=== PATIENT | female | born 1935 | race Caucasian/White ===

== ENCOUNTER → 2017-01-02 | Outpatient (CLI) | payer OTHER ==
[2017-01-02 15:32] LABS: HEMATOCRIT 46.1 % (37.0-47.0); MEAN CELL VOLUME 109.5 fl (81.0-99.0); MEAN CORPUSCULAR HGB 35.6 pg (27.0-31.0); MEAN CORPUSCULAR HGB CONC 32.5 g/dl (33.0-37.0); MEAN PLATELET VOLUME 10.8 fl (9.6-12.3); PLATELET COUNT AUTOMATED 220 10*3/uL (130-400); RED BLOOD COUNT 4.21 10*6/uL (4.10-5.10); RED CELL DISTRI WIDTH 13.2 % (0-14.5); WHITE BLOOD COUNT 8.5 10*3/uL (4.8-10.8)
[2017-01-02 15:52] LABS: EOSINOPHIL # 0.2 10*3/uL (0-0.4); EOSINOPHILS 2 % (1-4); LYMPHOCYTE # 1.3 10*3/uL (1.3-4.4); MONOCYTE # 0.7 10*3/uL (0.1-1.0); NEUTROPHIL # 6.4 10*3/uL (2.3-7.9); NEUTROPHILS 75 % (47-73); TOTAL CELLS COUNTED 100 #CELLS
[2017-01-02 15:53] LABS: PLATELET SUFFICIENCY NORMAL (NORMAL)
[2017-01-02 16:09] LABS: ALBUMIN 3.5 gm/dl (3.1-4.5); ALKALINE PHOSPHATASE 86 U/L (45-117); BILIRUBIN, TOTAL 0.5 mg/dl (0.2-1.0); BUN 41 mg/dl (7-24); CARBON DIOXIDE 29 mmol/L (21-32); CHLORIDE 103 mmol/L (98-107); EST GLOM FILT AFRICAN AMERICAN > 60 ml/min; FREE T4 1.03 ng/dl (0.76-1.46); GLUCOSE 109 mg/dL (65-99); POTASSIUM 4.4 mmol/L (3.5-5.1); SGOT/AST 29 IU/L (3-35); SGPT/ALT 23 U/L (12-78); SODIUM 140 mmol/L (136-145); TOTAL PROTEIN 7.8 gm/dL (6.4-8.2)
[2017-01-03 05:13] LABS: THYROID PEROXIDASE (TPO) AB 10 IU/mL (0-34)
[2017-01-03 12:08] LABS: THYROGLOBULIN ANTIBODY <1.0 IU/mL (0.0-0.9)
== END | disposition home or self-care (01) ==
LOC: LAB 15:03
PROVIDERS: Family Medicine
DX: J44.9 Chronic obstructive pulmonary disease, unspecified (principal); H05.20 Unspecified exophthalmos; R63.4 Abnormal weight loss; R05 Cough; R09.89 Other specified symptoms and signs involving the circulatory and respiratory systems; Z87.891 Personal history of nicotine dependence

== ENCOUNTER → 2017-01-23 | Outpatient (CLI) | payer OTHER ==
[2017-01-23 11:40] LABS: RETICULOCYTE % 1.79 % (0.50-2.50)
[2017-01-23 11:46] LABS: IRF 12.8 % (2.4-13.3); RET-He 41.4 pg (32.1-37.9)
[2017-01-23 13:06] LABS: FOLIC ACID > 24.00 ng/mL (>5.38)
== END | disposition home or self-care (01) ==
LOC: LAB 11:20
PROVIDERS: Family Medicine
DX: D64.9 Anemia, unspecified (principal)

== ENCOUNTER 2017-06-16 11:24 | Inpatient (IN) | payer OTHER ==
[~2017-06-16] VITALS: Ht 157.4 cm; Wt 46.8 kg
[2017-06-16 11:24] VITALS: BP 140/60
[2017-06-16 11:58] LABS: BASO # 0.1 10*3/uL (0.0-0.1); BASO % 0.6 % (0.0-1.0); EOS # 0.1 10*3/uL (0.0-0.4); EOS % 1.1 % (1.0-4.0); HEMATOCRIT 36.8 % (37.0-47.0); HEMOGLOBIN 11.7 g/dl (12.0-16.0); LYMPH # 0.9 10*3/uL (1.3-4.4); LYMPH % 10.9 % (27.0-41.0); MEAN CELL VOLUME 107.6 fl (81.0-99.0); MEAN CORPUSCULAR HGB 34.2 pg (27.0-31.0); MEAN CORPUSCULAR HGB CONC 31.8 g/dl (33.0-37.0); NEUT # 6.1 10*3/uL (2.3-7.9); NEUT % 75.2 % (47.0-73.0); PLATELET COUNT AUTOMATED 172 10*3/uL (130-400); RED BLOOD COUNT 3.42 10*6/uL (4.10-5.10); RED CELL DISTRI WIDTH 14.5 % (0-14.5); WHITE BLOOD COUNT 8.1 10*3/uL (4.8-10.8)
[2017-06-16 12:07] LABS: ACT PARTIAL THROMBO TIME 24.4 SECONDS (20.8-31.5)
[2017-06-16 12:14] LABS: ALBUMIN 3.2 gm/dl (3.1-4.5); ALKALINE PHOSPHATASE 82 U/L (45-117); BUN 23 mg/dl (7-24); CHLORIDE 103 mmol/L (98-107); CKMB < 0.5 ng/ml (0.5-3.6); CPK 111 U/L (26-192); CREATININE 0.67 mg/dL (0.55-1.02); LIPASE 173 U/L (73-393); MAGNESIUM 2.3 mg/dL (1.5-2.1); POTASSIUM 3.9 mmol/L (3.5-5.1); SGOT/AST 29 IU/L (3-35); SGPT/ALT 23 U/L (12-78); SODIUM 140 mmol/L (136-145); TOTAL PROTEIN 6.9 gm/dL (6.4-8.2); TROPONIN I < 0.015 ng/ml (<0.045)
[2017-06-16 12:51] LABS: BILIRUBIN NEGATIVE (NEGATIVE); BLOOD NEGATIVE (NEGATIVE); CLARITY SL CLOUDY (CLEAR); COLOR YELLOW (YELLOW); GLUCOSE NEGATIVE (NEGATIVE); KETONE NEGATIVE (NEGATIVE); LEUKO ESTERASE NEGATIVE (NEGATIVE); NITRITE POSITIVE (NEGATIVE); UROBILINOGEN 0.2 E.U./dl (0.2-1.0)
[2017-06-16 12:55] VITALS: BP 143/72
[2017-06-16 13:02] LABS: BACTERIA 4+
[2017-06-16 13:46] VITALS: BP 148/75
[2017-06-16 14:45] VITALS: BP 155/64
--- NOTE | 2017-06-16 14:45 | NUR ---
Time: 1444 A 81 year old FEMALE admitted to 5E under services of AMI TALBERT DO. Pt. arrived via bed from ER. Chief complaint: PELVIC AND RIGHT HIP PAIN. HILARIO CANO
--- NOTE | 2017-06-16 15:00 | NUR ---
PATIENT REFUSED FLU VACCINATION
--- NOTE | 2017-06-16 16:47 | NUR ---
PHYSICAL THERAPY Multiple pelvic fractures identified. Recommend ortho consult for weight bearing status permitted. thank you for this referral. Fela Rae.PT
[2017-06-16 20:00] VITALS: BP 163/73
--- NOTE | 2017-06-16 23:23 | NUR ---
PATIENT MEDICATED WITH PRN MORPHINE ORDERED FOR C/O PELVIC PAIN RATED A 10. MEDICATED WITH PRN RESTORIL ORDERED FOR C/O INSOMNIA.
[2017-06-17] VITALS: BP 156/83
--- NOTE | 2017-06-17 00:30 | NUR ---
PATIENT RESTING IN BED QUIETLY. MORPHINE EFFECTIVE PER PATIENT. NO VOICED COMPLAINTS AT THIS TIME. RESPIRATIONS EASY/REGULAR. NO SXS OF DISTRESS. FLUIDS MAINTAINED PER ORDER. CALL LIGHT IS IN REACH.
--- NOTE | 2017-06-17 06:30 | NUR ---
PATIENT SLEPT THROUGHOUT MOST OF SHIFT WITH NO VOICED COMPLAINTS. RESPIRATIONS EASY/REGULAR. FLUIDS MAINTAINED PER ORDER. CALL LIGHT IS IN REACH.
[2017-06-17 07:15] LABS: HEMATOCRIT 36.2 % (37.0-47.0); HEMOGLOBIN 11.5 g/dl (12.0-16.0); MEAN CORPUSCULAR HGB 34.6 pg (27.0-31.0); MEAN CORPUSCULAR HGB CONC 31.8 g/dl (33.0-37.0); MEAN PLATELET VOLUME 10.5 fl (9.6-12.3); PLATELET COUNT AUTOMATED 156 10*3/uL (130-400); RED BLOOD COUNT 3.32 10*6/uL (4.10-5.10); RED CELL DISTRI WIDTH 14.6 % (0-14.5); WHITE BLOOD COUNT 5.9 10*3/uL (4.8-10.8)
[2017-06-17 07:41] LABS: BASOPHILS 1 % (0-1); TOTAL CELLS COUNTED 100 #CELLS
[2017-06-17 07:42] LABS: PLATELET SUFFICIENCY NORMAL (NORMAL)
[2017-06-17 07:52] LABS: CHLORIDE 103 mmol/L (98-107); CHOLESTEROL 235 mg/dL (<200); CREATININE 0.44 mg/dL (0.55-1.02); HDL CHOLESTEROL 77 mg/dl (40-60); LDL CHOLESTEROL 141 mg/dL (9-159); PHOSPHOROUS 2.7 mg/dL (2.5-4.9); POTASSIUM 3.2 mmol/L (3.5-5.1); SODIUM 138 mmol/L (136-145); TRIGLYCERIDES 85 mg/dl (<150); VLDL CHOLESTEROL 17 mg/dL (6-40)
[2017-06-17 08:00] VITALS: BP 125/60
[2017-06-17 08:13] LABS: BUN 13 mg/dl (7-24)
--- NOTE | 2017-06-17 08:21 | NUR ---
Senior Executive Assistant in to talk to patient. Patient states lives at home with alone. There are few steps in the home. Physician: manuel Pharmacy: tho Home health services: none Patient's level of ADLs: MINIMAL ASSIST Patient has working utilities: all working DME: none Follow-up physician's appointment after d/c: will be made by hospitalist nurse director upon discharge Does patient want to access PORTAL?: no Discharge plan discussed with patient, patient states she lives at home alone, she was getting around fine until she fell, discussed with her a short term [place] [facility] for [facility] prior to going back home and patient was inagreement, gave patient choices of area facilities and she stated to see which one would accept her insurance, resource management planner will check on facilities and talk with patient. LOUANN BENÍTEZ
--- NOTE | 2017-06-17 08:27 | NUR ---
Residential Pest Control Technician in to talk to patient. Patient states lives at home with alone. There are few steps in the home. Physician: none Pharmacy: none Home health services: none Patient's level of ADLs: INDEPENDENT Patient has working utilities: all working DME: none Follow-up physician's appointment after d/c: will be made by hospitalist nurse director upon discharge with doctor of patient's choice Does patient want to access PORTAL?: no Discharge plan discussed with patient, patient lives at home alone, she states she was getting around fine until her fall, discussed with her a short term [facility] and she was receptive to this, given her the area facilities, patient stated to check and see which one would accept her insurance. conservation planner will check this and talk with patient. LOUANN BENÍTEZ
--- NOTE | 2017-06-17 08:46 | NUR ---
PHYSICAL THERAPY Ortho consult to be completed this date, awaiting WB Status via ortho. Fela Rae,PT
[2017-06-17 12:00] VITALS: BP 109/58
--- NOTE | 2017-06-17 12:12 | NUR ---
PHYSICAL THERAPY ortho recommending CT scan prior to weigth bearing. Fela Rae,PT
[2017-06-17 16:00] VITALS: BP 149/76
--- NOTE | 2017-06-17 17:17 | NUR ---
DR. SANCHES IN TO SEE PATIENT. THE ORDERED ACTIVITY TOLERATED AND CONSULTED PT AND OT. NO OTHER CONCERNS FROM THE
[2017-06-17 20:00] VITALS: BP 150/79
--- NOTE | 2017-06-17 20:11 | NUR ---
Medicated with [place] po prn for hip pain rating 8/10. Will monitor effectiveness. Call light within reach.
--- NOTE | 2017-06-17 21:15 | NUR ---
Patient resting quietly in bed with eyes closed. Lyle effective. Will continue to monitor. Call light within reach.
[2017-06-18] VITALS: BP 159/70
--- NOTE | 2017-06-18 00:38 | NUR ---
24 HR chart check completed.
[2017-06-18 08:00] VITALS: BP 158/72
--- NOTE | 2017-06-18 08:09 | NUR ---
Patient requested to be referred to [facility]. Waiting on ortho, PT and OT evals prior to making referral.
[2017-06-18 08:47] LABS: BASO % 0.4 % (0.0-1.0); EOS # 0.3 10*3/uL (0.0-0.4); HEMATOCRIT 36.4 % (37.0-47.0); HEMOGLOBIN 11.9 g/dl (12.0-16.0); LYMPH # 1.2 10*3/uL (1.3-4.4); LYMPH % 17.4 % (27.0-41.0); MEAN CELL VOLUME 106.1 fl (81.0-99.0); MEAN CORPUSCULAR HGB 34.7 pg (27.0-31.0); MEAN CORPUSCULAR HGB CONC 32.7 g/dl (33.0-37.0); MEAN PLATELET VOLUME 10.4 fl (9.6-12.3); MONO # 0.9 10*3/uL (0.1-1.0); NEUT # 4.3 10*3/uL (2.3-7.9); NEUT % 63.8 % (47.0-73.0); PLATELET COUNT AUTOMATED 152 10*3/uL (130-400); RED BLOOD COUNT 3.43 10*6/uL (4.10-5.10); RED CELL DISTRI WIDTH 14.2 % (0-14.5); WHITE BLOOD COUNT 6.7 10*3/uL (4.8-10.8)
[2017-06-18 08:58] LABS: BUN 11 mg/dl (7-24); CHLORIDE 102 mmol/L (98-107); CREATININE 0.49 mg/dL (0.55-1.02); MAGNESIUM 2.1 mg/dL (1.5-2.1); PHOSPHOROUS 2.9 mg/dL (2.5-4.9); POTASSIUM 3.8 mmol/L (3.5-5.1); SODIUM 136 mmol/L (136-145)
--- NOTE | 2017-06-18 09:44 | NUR ---
Occupational Therapy evaluation completed this date on with full eval to follow. Precautions include moderate complexity level 56745 with severe right pelvis and right shoulder pain /, WBAT RUE per Dr. Ochoa, fall risk, new ww use, bed alarm, significant ADL decline. Recommend OT per POC and SNF upon d/c. Thank you for this referral. Ashlee Landry OTR/L
--- NOTE | 2017-06-18 10:07 | NUR ---
MEDICATED WITH NORCO FOR PAIN SHE RATES AN 8 ON THE PAIN SCALE.
--- NOTE | 2017-06-18 11:00 | NUR ---
NO FURTHER COMPLAINTS OF PAIN.
--- NOTE | 2017-06-18 11:55 | NUR ---
PHYSICAL THERAPY Physical Therapy Evaluation completed this date. See full eval for complete details. Will begin PT intervention to address impairments of painful ROM R hip, decreased strength, decreased functional mobility I, and difficulty ambulating. Recommend SNF [place] d[place] [address] based on medical chart review and PT eval. Jenny Martinez, PT
[2017-06-18 12:00] VITALS: BP 128/70
--- NOTE | 2017-06-18 13:33 | NUR ---
PHYSICAL THERAPY Selene seen this PM 1:1 for her therapy session. Pt with Fx of R sup/inf pubic ramus and is WBAT R LE and R UE and did well with this. Transfer supine/sit and stand with MOD A X 1, with wheeled walker. Followed by gait 60' X 1, W/W and MOD WORKERS COMPENSATION ADMINISTRATOR X 1, with verbal cueing for gait, walker and WBAT with the gait with no LOB. Pt back up in her bedside chair call light and body alarm on with no complaints, treatment time 16 min. SVETLANA ALVA STAKE DRIVER.
--- NOTE | 2017-06-18 14:01 | NUR ---
Patient referred to [facility], waiting on acceptance. Will require precert.
--- NOTE | 2017-06-18 14:08 | NUR ---
MEDICATED WITH NORCO FOR PELVIC PAIN SHE RATES A 6 ON THE PAIN SCALE.
--- NOTE | 2017-06-18 15:00 | NUR ---
NO FURTHER COMPLAINTS OF PAIN.
[2017-06-18 16:00] VITALS: BP 115/71
--- NOTE | 2017-06-18 18:53 | NUR ---
MEDICATED WITH NORCO FOR PELVIC PAIN SHE RATES A 7 ON THE PAIN SCALE.
[2017-06-18 20:00] VITALS: BP 128/77
[2017-06-19] VITALS: BP 150/75
--- NOTE | 2017-06-19 01:37 | NUR ---
24 HR chart check completed.
--- NOTE | 2017-06-19 07:23 | NUR ---
PT AWAKE, ALERT ORIENTED TO PERSON AND TIME, PERIODS OF FORGETFULNESS NOTED. CALL LIGHT IN REACH AND REINFORCED. PRN PO NORCO GIVEN FOR PAIN R/T FALLS. RATES PAIN AT 10/10. WILL MONITOR EFFECTIVENESS.
[2017-06-19 08:00] VITALS: BP 122/61
[2017-06-19 12:00] VITALS: BP 121/57
--- NOTE | 2017-06-19 12:52 | NUR ---
Hospital exemption completed online in [facility] system. Patient for [facility], waiting on precert.
--- NOTE | 2017-06-19 13:04 | NUR ---
PHYSICAL THERAPY Selene seen this AM 1:1 for her therapy gait. Said that she felt stiff from laying. Transfer supine/sit MOD A X 1, sitting balance CG X 1, X 6 min. Sit/stand and up on standard walker standing balance MIN A X 1. Gait total 30' X 1, and said thats all, just need to rest, back supine in bed, bed alarm on. Will check back this PM. SVETLANA ALVA COAL TRAMMER.
--- NOTE | 2017-06-19 13:09 | NUR ---
PHYSICAL THERAPY Selene seen this PM 1:1 for her physical therapy session and a little better then this AM session. Transfer supine/sit MOD A X 1, sitting balance supervision X 1, X 8 min no LOB. Sit/stand up on standard walker balance MIN A X 1, with weight shift and some improvement in her hip pain from this morning. Gait with S/W 40' X 1, cueing for safety with MOD EARLY CHILDHOOD SPECIAL EDUCATOR X 1, no LOB and just slow with her gait. Selene up in her bedside chair, lunch in at this time, Pt with body alarm on, treatment time 24 min. SVETLANA ALVA WINDOW UNIT AIR CONDITIONING MECHANIC.
[2017-06-19 16:00] VITALS: BP 119/60
[2017-06-19 20:00] VITALS: BP 118/64
--- NOTE | 2017-06-19 20:48 | NUR ---
VICODIN GIVEN PER ORDER FOR PELVIC PAIN RATED "9" FARRUKH
--- NOTE | 2017-06-19 21:45 | NUR ---
vicodin helping with pain per pt.
--- NOTE | 2017-06-19 22:58 | NUR ---
c/o pelvic pain from fx. rated"6" tylenol given for pain see mar. restoril given to help pt. sleep per pt. request.
[2017-06-20] VITALS: BP 111/63
--- NOTE | 2017-06-20 00:30 | NUR ---
sleeping. tylenol and restoril effective for discomfort and insomnia.
[2017-06-20 08:00] VITALS: BP 129/68
--- NOTE | 2017-06-20 08:08 | NUR ---
VICODIN GIVEN PER ORDER FOR PELVIC FX PAIN RATED "8" AFTER UP WALKING WITH PHYSICAL THERAPY. SEE MAR.
--- NOTE | 2017-06-20 08:39 | NUR ---
PHYSICAL THERAPY Selene seen this AM 1:1 for her therapy session. C/O right sup/inf pubic pain said more then yesterday. Transfer supine/sit MOD A X 1, sitting balance once up independent. Sit/stand and standing balance with standard walker MOD A X 1, with weight shift. Followed by gait 50' X 1, standard walker and MIN to MOD BOREMATIC OPERATOR X 1, cueing for safety, Pt up in her bedside chair sitting rest followed by act Ex to bilateral LE ankle pumps, LAQ's, and marching to tolerance. Pt with call light, phone and feeling a little better. SVETLANA ALVA RELAY MECHANIC.
--- NOTE | 2017-06-20 09:00 | NUR ---
VICODIN NOT EFFECTIVE AT THIS TIME.
[2017-06-20] MEDS ORDERED: TEMAZEPAM15 M1 PO (11:42)
[2017-06-20] MEDS ORDERED: AMINOPHYLLIN200 MG PO (11:42)
[2017-06-20] MEDS ORDERED: NORCO 5-325 TA1 EACH PO (11:42)
[2017-06-20 12:00] VITALS: BP 108/60
--- NOTE | 2017-06-20 12:59 | NUR ---
Patient is being discharged to [facility], transportation scheduled for 330 with [facility]. [facility], nursing notified. left message for [facility] listed on face sheet.
--- NOTE | 2017-06-20 14:37 | NUR ---
PHYSICAL THERAPY CO-SIGN I approve of the Phyical Therapy notes written above. BIRGIT ROBERT PT
--- NOTE | 2017-06-20 16:15 | NUR ---
Discharge instructions reviewed with patient/family. Patient receptive and verbalizes understanding. Follow-up care arranged. Written instructions given to patient/family. MISHEL GUEVARA
== END 2017-06-20 16:15 | disposition other institution (70) | DRG 536 ==
LOC: ED 11:24 → 5E 14:25 → EDHOLD 14:25 → 5E 14:30
PROVIDERS: Emergency Medicine; Internal Medicine; Student in an Organized Health Care Education/Training Program; ADMIT Internal Medicine
DX: S32.591A Other specified fracture of right pubis, initial encounter for closed fracture (principal); G91.9 Hydrocephalus, unspecified; E87.2 Acidosis; S22.089A Unspecified fracture of T11-T12 vertebra, initial encounter for closed fracture; S00.83XA Contusion of other part of head, initial encounter; D53.9 Nutritional anemia, unspecified; I10 Essential (primary) hypertension; E44.1 Mild protein-calorie malnutrition; Z68.1 Body mass index [BMI] 19.9 or less, adult; N39.0 Urinary tract infection, site not specified; E83.41 Hypermagnesemia; R00.0 Tachycardia, unspecified; R73.9 Hyperglycemia, unspecified; R91.1 Solitary pulmonary nodule; E78.5 Hyperlipidemia, unspecified; B96.20 Unspecified Escherichia coli [E. coli] as the cause of diseases classified elsewhere; W18.39XA Other fall on same level, initial encounter; Y93.89 Activity, other specified; Y92.89 Other specified places as the place of occurrence of the external cause; Y99.8 Other external cause status; Z87.891 Personal history of nicotine dependence; Z82.49 Family history of ischemic heart disease and other diseases of the circulatory system; Z98.42 Cataract extraction status, left eye; Z98.41 Cataract extraction status, right eye

== ENCOUNTER → 2017-07-07 | Outpatient (CLI) | payer OTHER ==
[~2017-07-07] MED LIST: AMINOPHYLLIN200 MG PO; NORCO 5-325 TA1 EACH PO; TEMAZEPAM15 M1 PO
== END | disposition home or self-care (01) ==
LOC: RESCLI 01:30
DX: Z53.9 Procedure and treatment not carried out, unspecified reason (principal)

== ENCOUNTER → 2018-02-03 | Outpatient (CLI) | payer OTHER ==
[2018-02-04 09:31] LABS: THYROID STIM HORMONE (HS) 1.57 uIU/ml (0.358-4.75); THYROXINE (T4) TOTAL 7.2 ug/dl (4.8-13.9)
== END | disposition home or self-care (01) ==
LOC: LAB 15:16
PROVIDERS: Optometrist
DX: E05.00 Thyrotoxicosis with diffuse goiter without thyrotoxic crisis or storm (principal)

== ENCOUNTER 2018-07-15 15:34 | Inpatient (IN) | payer OTHER ==
[~2018-07-15] VITALS: Ht 157.4 cm; Wt 39.9 kg
--- NOTE | ~2018-07-15 | EKG ---
[place], [place] ELECTROCARDIOGRAM REPORT NAME: DEEPIKA CAMPBELL UNIT #: [id number] ROOM: 412 DOCTOR: PEPE DRAFT REPORT BIRTHDATE: [birth year] [facility] Test Date: 2018-07-15 Test Time: 15:54:04 Pat Name: DEEPIKA CAMPBELL Department: Room: 412 Gender: F Packaging Assembler: ADAM : 1935 Requested By: LEW RODRÍGUEZ Order Number: [id number] Reading MD: Ryne Hyman MD Measurements Intervals [place] Rate: 97 P: 46 [place]: 141 QRS: -48 QRSD: 81 T: 66 QT: 322 QTc: 409 Interpretive Statements Sinus rhythm Left anterior fascicular block Flat TW in V leads Compared to ECG 05/27/2018 08:39:59 Left anterior fascicular block now present Atrial premature complex(es) no longer present Electronically Signed On 07-20-2018 13:49:07 PDT by Ryne Hyman MD CM:EKGRPT:ELECTROCARDIOGRAM REPORT [id number] LEW CANTU DRAFT REPORT LEW RODRÍGUEZ MD
[~2018-07-15 15:34] MED LIST changes: +ASPIRIN ADULT L81 M2 PO; +ATORVASTATIN CA40 M1 PO; +HYDROXYZINE PAM50 MG PO; +METOPROLOL SUCC25 M2 PO; +NORVASC2.5 MG PO; +ONE DAILY WOME0.4 MG PO; +RIVASTIGMINE1 EAC2 TD; +THIAMINE HCL100 MG PO; +XARE15TA PO; +XARE20MG PO; +XARELTO20 M1 PO
[2018-07-15 15:44] VITALS: BP 137/70
[2018-07-15] MEDS ORDERED: SMZ/TMP DS TAB 800 (15:50)
[2018-07-15] MEDS ORDERED: LIPITOR40 MG PO (15:50)
[2018-07-15] MEDS ORDERED: B-1100 M1 PO (15:53)
[2018-07-15] MEDS ORDERED: NORVASC2.5 MG PO (15:54)
[2018-07-15 16:48] LABS: BASO # 0.1 10*3/uL (0.0-0.1); EOS # 0.3 10*3/uL (0.0-0.4); EOS % 3.4 % (1.0-4.0); HEMATOCRIT 41.5 % (37.0-47.0); HEMOGLOBIN 13.1 g/dl (12.0-16.0); LYMPH # 1.5 10*3/uL (1.3-4.4); LYMPH % 17.8 % (27.0-41.0); MEAN CELL VOLUME 99.8 fl (81.0-99.0); MEAN CORPUSCULAR HGB 31.5 pg (27.0-31.0); MEAN CORPUSCULAR HGB CONC 31.6 g/dl (33.0-37.0); MEAN PLATELET VOLUME 9.5 fl (9.6-12.3); MONO % 11.5 % (3.0-9.0); NEUT # 5.7 10*3/uL (2.3-7.9); PLATELET COUNT AUTOMATED 385 10*3/uL (130-400); RED BLOOD COUNT 4.16 10*6/uL (4.10-5.10); RED CELL DISTRI WIDTH 12.7 % (0-14.5); WHITE BLOOD COUNT 8.6 10*3/uL (4.8-10.8)
[2018-07-15 16:57] LABS: ACT PARTIAL THROMBO TIME 31.1 SECONDS (20.8-31.5); INTERNATIONAL NORM RATIO 1.1 (2.0-3.5)
[2018-07-15 17:00] VITALS: BP 128/64
[2018-07-15 17:06] LABS: ALBUMIN 2.7 gm/dl (3.1-4.5); ALKALINE PHOSPHATASE 464 U/L (45-117); BUN 24 mg/dl (7-24); CHLORIDE 102 mmol/L (98-107); SGOT/AST 33 IU/L (3-35); SGPT/ALT 50 U/L (12-78); SODIUM 138 mmol/L (136-145); TOTAL PROTEIN 7.6 gm/dL (6.4-8.2)
[2018-07-15 17:07] LABS: TROPONIN I < 0.015 ng/ml (<0.045)
[2018-07-15 18:10] VITALS: BP 134/66
[2018-07-15 18:15] LABS: BILIRUBIN NEGATIVE (NEGATIVE); BLOOD NEGATIVE (NEGATIVE); CLARITY CLEAR (CLEAR); COLOR YELLOW (YELLOW); GLUCOSE NEGATIVE (NEGATIVE); KETONE NEGATIVE (NEGATIVE); LEUKO ESTERASE 1+ (NEGATIVE); NITRITE NEGATIVE (NEGATIVE); SPECIFIC GRAVITY 1.025 (1.005-1.030); UROBILINOGEN 0.2 E.U./dl (0.2-1.0)
[2018-07-15 18:21] LABS: BACTERIA TRACE; RBC 0-2 rbc/hpf (0-2); WBC 31-40 wbc/hpf (0-5)
[2018-07-15 19:40] VITALS: BP 130/62
[2018-07-15 20:30] VITALS: BP 124/62; BP 130/62
[2018-07-16] VITALS (7 sets, daily range): BP systolic 100–142; BP diastolic 56–68
[2018-07-16 06:23] LABS: BASO # 0.1 10*3/uL (0.0-0.1); EOS # 0.4 10*3/uL (0.0-0.4); EOS % 3.4 % (1.0-4.0); HEMATOCRIT 38.1 % (37.0-47.0); HEMOGLOBIN 12.3 g/dl (12.0-16.0); LYMPH # 1.4 10*3/uL (1.3-4.4); LYMPH % 12.2 % (27.0-41.0); MEAN CELL VOLUME 97.9 fl (81.0-99.0); MEAN CORPUSCULAR HGB 31.6 pg (27.0-31.0); MEAN CORPUSCULAR HGB CONC 32.3 g/dl (33.0-37.0); MEAN PLATELET VOLUME 9.8 fl (9.6-12.3); MONO # 1.2 10*3/uL (0.1-1.0); MONO % 10.7 % (3.0-9.0); NEUT # 8.3 10*3/uL (2.3-7.9); NEUT % 72.4 % (47.0-73.0); PLATELET COUNT AUTOMATED 391 10*3/uL (130-400); RED BLOOD COUNT 3.89 10*6/uL (4.10-5.10); RED CELL DISTRI WIDTH 12.8 % (0-14.5); WHITE BLOOD COUNT 11.4 10*3/uL (4.8-10.8)
[2018-07-16 06:42] LABS: ALBUMIN 2.7 gm/dl (3.1-4.5); BUN 21 mg/dl (7-24); CHLORIDE 102 mmol/L (98-107); CHOLESTEROL 142 mg/dL (<200); CREATININE 0.72 mg/dL (0.55-1.02); PHOSPHOROUS 3.1 mg/dL (2.5-4.9); POTASSIUM 4.1 mmol/L (3.5-5.1); SGOT/AST 35 IU/L (3-35); SGPT/ALT 44 U/L (12-78); SODIUM 137 mmol/L (136-145); TRIGLYCERIDES 98 mg/dl (<150); VLDL CHOLESTEROL 20 mg/dL (6-40)
[2018-07-16 06:50] LABS: ALKALINE PHOSPHATASE 421 U/L (45-117); HDL CHOLESTEROL 49 mg/dl (40-60); LDL CHOLESTEROL 73 mg/dL (9-159)
[2018-07-16 07:23] LABS: VITAMIN D, 25-HYDROXY 33.9 ng/mL (30-100)
[2018-07-17] VITALS: BP 118/58
[2018-07-17 08:00] VITALS: BP 98/46
[2018-07-17 12:00] VITALS: BP 111/60
[2018-07-17 16:00] VITALS: BP 107/52
[2018-07-17 20:00] VITALS: BP 120/65
[2018-07-18] VITALS: BP 114/62
[2018-07-18 08:00] VITALS: BP 105/60
[2018-07-18 10:17] LABS: BASO # 0.1 10*3/uL (0.0-0.1); EOS # 0.5 10*3/uL (0.0-0.4); EOS % 5.2 % (1.0-4.0); HEMATOCRIT 41.4 % (37.0-47.0); HEMOGLOBIN 12.9 g/dl (12.0-16.0); LYMPH # 1.5 10*3/uL (1.3-4.4); LYMPH % 16.2 % (27.0-41.0); MEAN CORPUSCULAR HGB 31.5 pg (27.0-31.0); MEAN CORPUSCULAR HGB CONC 31.2 g/dl (33.0-37.0); MEAN PLATELET VOLUME 9.6 fl (9.6-12.3); MONO # 0.9 10*3/uL (0.1-1.0); MONO % 9.9 % (3.0-9.0); NEUT # 6.1 10*3/uL (2.3-7.9); NEUT % 67.4 % (47.0-73.0); PLATELET COUNT AUTOMATED 366 10*3/uL (130-400); RED CELL DISTRI WIDTH 12.7 % (0-14.5); WHITE BLOOD COUNT 9.1 10*3/uL (4.8-10.8)
[2018-07-18 11:14] LABS: ALBUMIN 2.5 gm/dl (3.1-4.5); ALKALINE PHOSPHATASE 445 U/L (45-117); BUN 10 mg/dl (7-24); CHLORIDE 108 mmol/L (98-107); CREATININE 0.75 mg/dL (0.55-1.02); POTASSIUM 3.9 mmol/L (3.5-5.1); SGOT/AST 69 IU/L (3-35); SGPT/ALT 75 U/L (12-78); SODIUM 137 mmol/L (136-145); TOTAL PROTEIN 7.2 gm/dL (6.4-8.2)
[2018-07-18 12:00] VITALS: BP 112/62
[2018-07-18 16:00] VITALS: BP 129/66
[2018-07-18 20:00] VITALS: BP 106/65
[2018-07-19] VITALS: BP 110/74
[2018-07-19 05:53] LABS: BASO # 0.1 10*3/uL (0.0-0.1); EOS # 0.5 10*3/uL (0.0-0.4); EOS % 5.9 % (1.0-4.0); HEMATOCRIT 40.1 % (37.0-47.0); HEMOGLOBIN 12.3 g/dl (12.0-16.0); LYMPH # 1.3 10*3/uL (1.3-4.4); LYMPH % 14.5 % (27.0-41.0); MEAN CORPUSCULAR HGB CONC 30.7 g/dl (33.0-37.0); MEAN PLATELET VOLUME 9.6 fl (9.6-12.3); MONO # 1.1 10*3/uL (0.1-1.0); MONO % 12.2 % (3.0-9.0); NEUT # 5.7 10*3/uL (2.3-7.9); NEUT % 66.1 % (47.0-73.0); PLATELET COUNT AUTOMATED 353 10*3/uL (130-400); RED BLOOD COUNT 3.97 10*6/uL (4.10-5.10); RED CELL DISTRI WIDTH 12.6 % (0-14.5); WHITE BLOOD COUNT 8.6 10*3/uL (4.8-10.8)
[2018-07-19 06:07] LABS: BUN 14 mg/dl (7-24); CHLORIDE 103 mmol/L (98-107); CREATININE 0.58 mg/dL (0.55-1.02); POTASSIUM 4.2 mmol/L (3.5-5.1); SODIUM 140 mmol/L (136-145)
[2018-07-19 08:00] VITALS: BP 109/56
[2018-07-19 12:00] VITALS: BP 118/57
[2018-07-19 16:00] VITALS: BP 100/54
[2018-07-19 20:00] VITALS: BP 108/73
[2018-07-20] VITALS: BP 108/64
[2018-07-20 07:11] LABS: BASO # 0.1 10*3/uL (0.0-0.1); BASO % 1.1 % (0.0-1.0); EOS # 0.6 10*3/uL (0.0-0.4); EOS % 6.1 % (1.0-4.0); HEMATOCRIT 40.3 % (37.0-47.0); HEMOGLOBIN 12.5 g/dl (12.0-16.0); LYMPH # 1.7 10*3/uL (1.3-4.4); LYMPH % 18.3 % (27.0-41.0); MEAN CELL VOLUME 101.3 fl (81.0-99.0); MEAN CORPUSCULAR HGB 31.4 pg (27.0-31.0); MEAN PLATELET VOLUME 9.6 fl (9.6-12.3); NEUT # 5.9 10*3/uL (2.3-7.9); NEUT % 63.2 % (47.0-73.0); PLATELET COUNT AUTOMATED 378 10*3/uL (130-400); RED BLOOD COUNT 3.98 10*6/uL (4.10-5.10); RED CELL DISTRI WIDTH 12.4 % (0-14.5); WHITE BLOOD COUNT 9.4 10*3/uL (4.8-10.8)
[2018-07-20 07:24] LABS: ALBUMIN 2.6 gm/dl (3.1-4.5); ALKALINE PHOSPHATASE 507 U/L (45-117); BUN 9 mg/dl (7-24); CHLORIDE 101 mmol/L (98-107); CREATININE 0.65 mg/dL (0.55-1.02); SGOT/AST 111 IU/L (3-35); SGPT/ALT 127 U/L (12-78); SODIUM 138 mmol/L (136-145); TOTAL PROTEIN 7.5 gm/dL (6.4-8.2)
[2018-07-20 08:00] VITALS: BP 128/62
[2018-07-20 12:00] VITALS: BP 119/62
[2018-07-20 16:00] VITALS: BP 122/59
[2018-07-20 20:00] VITALS: BP 105/54
[2018-07-21] VITALS: BP 132/66
[2018-07-21 08:00] VITALS: BP 111/58
[2018-07-21 12:00] VITALS: BP 116/56
[2018-07-21 16:00] VITALS: BP 105/53
[2018-07-21 20:00] VITALS: BP 115/56
[2018-07-22] VITALS: BP 99/73
[2018-07-22 08:00] VITALS: BP 118/60
[2018-07-22 12:00] VITALS: BP 116/62
[2018-07-22 16:00] VITALS: BP 149/69
[2018-07-22 20:00] VITALS: BP 111/61
[2018-07-23] VITALS: BP 125/62
[2018-07-23 08:00] VITALS: BP 96/68
[2018-07-23 12:00] VITALS: BP 106/56
== END 2018-07-23 15:01 | disposition other institution (70) | DRG 689 ==
LOC: ED 15:34 → EDHOLD 19:27 → 4E 19:27
PROVIDERS: Emergency Medicine; Internal Medicine; Student in an Organized Health Care Education/Training Program
DX: N39.0 Urinary tract infection, site not specified (principal); E43 Unspecified severe protein-calorie malnutrition; E87.2 Acidosis; I50.22 Chronic systolic (congestive) heart failure; Z68.1 Body mass index [BMI] 19.9 or less, adult; R53.1 Weakness; M47.816 Spondylosis without myelopathy or radiculopathy, lumbar region; M46.96 Unspecified inflammatory spondylopathy, lumbar region; I25.10 Atherosclerotic heart disease of native coronary artery without angina pectoris; E83.41 Hypermagnesemia; L89.151 Pressure ulcer of sacral region, stage 1; E78.5 Hyperlipidemia, unspecified; F03.90 Unspecified dementia, unspecified severity, without behavioral disturbance, psychotic disturbance, mood disturbance, and anxiety; I11.0 Hypertensive heart disease with heart failure; R73.9 Hyperglycemia, unspecified; R74.8 Abnormal levels of other serum enzymes; R74.0 Nonspecific elevation of levels of transaminase and lactic acid dehydrogenase [LDH]; Z91.81 History of falling; I25.2 Old myocardial infarction; Z86.711 Personal history of pulmonary embolism; Z87.891 Personal history of nicotine dependence; Z82.49 Family history of ischemic heart disease and other diseases of the circulatory system; Z79.899 Other long term (current) drug therapy; Z79.82 Long term (current) use of aspirin

== ENCOUNTER 2019-10-13 06:35 | Emergency (ER) | payer OTHER ==
[~2019-10-13] VITALS: Ht 162.5 cm; Wt 61.2 kg
[~2019-10-13 06:35] MED LIST changes: +AUGMENTIN 875875 MG PO; +B-1100 M1 PO; +CEFUROXIME AXE250 MG PO; +KEFLEX500 M1 PO; +LIPITOR40 MG PO; +SMZ/TMP DS TAB 800
== END 2019-10-13 08:41 | disposition home or self-care (01) ==
LOC: ED 06:35
DX: M25.511 Pain in right shoulder (principal); M25.512 Pain in left shoulder; I25.10 Atherosclerotic heart disease of native coronary artery without angina pectoris; E78.5 Hyperlipidemia, unspecified; I10 Essential (primary) hypertension; Z87.891 Personal history of nicotine dependence; Z79.899 Other long term (current) drug therapy; W18.39XA Other fall on same level, initial encounter; Y93.89 Activity, other specified; Y92.128 Other place in nursing home as the place of occurrence of the external cause; Y99.8 Other external cause status

== ENCOUNTER 2021-01-08 12:09 | Inpatient (IN) | payer OTHER ==
[~2021-01-08] VITALS: Ht 154.9 cm; Wt 54.1 kg
[2021-01-08 12:17] VITALS: BP 173/76
[2021-01-08 12:45] LABS: BASO # 0.1 10*3/uL (0.0-0.1); BASO % 0.5 % (0.0-1.0); EOS # 0.4 10*3/uL (0.0-0.4); EOS % 2.9 % (1.0-4.0); HEMATOCRIT 30.1 % (37.0-47.0); LYMPH # 2.4 10*3/uL (1.3-4.4); LYMPH % 18.2 % (27.0-41.0); MEAN CELL VOLUME 74.5 fl (81.0-99.0); MEAN CORPUSCULAR HGB CONC 26.9 g/dl (33.0-37.0); MEAN PLATELET VOLUME 9.6 fl (9.6-12.3); MONO # 0.9 10*3/uL (0.1-1.0); MONO % 7.1 % (3.0-9.0); NEUT # 9.3 10*3/uL (2.3-7.9); NEUT % 71.1 % (47.0-73.0); PLATELET COUNT AUTOMATED 465 10*3/uL (130-400); RED BLOOD COUNT 4.04 10*6/uL (4.10-5.10); RED CELL DISTRI WIDTH 20.1 % (0-14.5)
[2021-01-08 12:56] LABS: ACT PARTIAL THROMBO TIME 27.6 SECONDS (20.0-32.1); INTERNATIONAL NORM RATIO 1.3 (2.0-3.5)
[2021-01-08 13:00] LABS: ALKALINE PHOSPHATASE 111 U/L (45-117); BUN 17 mg/dl (7-24); CHLORIDE 106 mmol/L (98-107); LIPASE 132 U/L (73-393); POTASSIUM 3.8 mmol/L (3.5-5.1); SGOT/AST 14 IU/L (3-35); SGPT/ALT 15 U/L (12-78); SODIUM 136 mmol/L (136-145)
[2021-01-08 13:02] LABS: TROPONIN I < 0.015 ng/ml (<0.045)
[2021-01-08 13:35] LABS: BILIRUBIN Negative (Negative); BLOOD Negative (Negative); CLARITY Clear (Clear); COLOR Yellow (Yellow); GLUCOSE Negative (Negative); KETONE Negative (Negative); LEUKO ESTERASE Trace (Negative); NITRITE Negative (Negative); PH 6.5 (4.5-8.0); UROBILINOGEN 0.2 E.U./dl (0.0-1.0)
[2021-01-08 14:16] VITALS: BP 145/89
[2021-01-08 16:01] VITALS: BP 150/83
[2021-01-08 17:54] VITALS: BP 137/109
[2021-01-08 19:38] VITALS: BP 146/92
[2021-01-08 19:45] VITALS: BP 152/88
[2021-01-09] VITALS: BP 122/54
[2021-01-09 08:00] VITALS: BP 146/76
[2021-01-09 15:59] VITALS: BP 152/74
[2021-01-09 20:00] VITALS: BP 148/62
[2021-01-10 12:00] VITALS: BP 136/76
[2021-01-10 16:00] VITALS: BP 146/81
[2021-01-10 20:00] VITALS: BP 138/83
[2021-01-11] VITALS: BP 144/77
[2021-01-11 05:57] LABS: BUN 32 mg/dl (7-24); CHLORIDE 102 mmol/L (98-107); POTASSIUM 3.8 mmol/L (3.5-5.1); SODIUM 135 mmol/L (136-145)
[2021-01-11 05:58] LABS: CREATININE 0.76 mg/dL (0.55-1.02)
[2021-01-11 06:18] LABS: BASO # 0.1 10*3/uL (0.0-0.1); BASO % 0.4 % (0.0-1.0); EOS # 0.2 10*3/uL (0.0-0.4); EOS % 1.6 % (1.0-4.0); HEMATOCRIT 27.6 % (37.0-47.0); LYMPH % 20.2 % (27.0-41.0); MEAN CELL VOLUME 74.8 fl (81.0-99.0); MEAN CORPUSCULAR HGB 20.1 pg (27.0-31.0); MEAN CORPUSCULAR HGB CONC 26.8 g/dl (33.0-37.0); MEAN PLATELET VOLUME 10.3 fl (9.6-12.3); MONO # 1.5 10*3/uL (0.1-1.0); MONO % 9.8 % (3.0-9.0); NEUT # 10.2 10*3/uL (2.3-7.9); NEUT % 67.5 % (47.0-73.0); PLATELET COUNT AUTOMATED 481 10*3/uL (130-400); RED BLOOD COUNT 3.69 10*6/uL (4.10-5.10); RED CELL DISTRI WIDTH 19.9 % (0-14.5); WHITE BLOOD COUNT 15.1 10*3/uL (4.8-10.8)
[2021-01-11 08:00] VITALS: BP 147/82
[2021-01-11 12:00] VITALS: BP 96/66
== END 2021-01-11 15:23 | DRG 65 ==
LOC: ED 12:09 → 4E 13:58 → EDHOLD 13:58 → 4E 17:31
PROVIDERS: Emergency Medicine; ADMIT Internal Medicine; ATTEND Internal Medicine
DX: I63.9 Cerebral infarction, unspecified (principal); G91.2 (Idiopathic) normal pressure hydrocephalus; E44.1 Mild protein-calorie malnutrition; Z66 Do not resuscitate; Z51.5 Encounter for palliative care; G30.1 Alzheimer's disease with late onset; F02.80 Dementia in other diseases classified elsewhere, unspecified severity, without behavioral disturbance, psychotic disturbance, mood disturbance, and anxiety; G24.01 Drug induced subacute dyskinesia; I10 Essential (primary) hypertension; E78.2 Mixed hyperlipidemia; M19.90 Unspecified osteoarthritis, unspecified site; F25.9 Schizoaffective disorder, unspecified; D72.829 Elevated white blood cell count, unspecified; T50.995A Adverse effect of other drugs, medicaments and biological substances, initial encounter; Y92.89 Other specified places as the place of occurrence of the external cause; Z91.81 History of falling; Z87.891 Personal history of nicotine dependence; Z82.49 Family history of ischemic heart disease and other diseases of the circulatory system; Z86.711 Personal history of pulmonary embolism; Z79.01 Long term (current) use of anticoagulants; Z98.42 Cataract extraction status, left eye; Z98.41 Cataract extraction status, right eye; Z68.22 Body mass index [BMI] 22.0-22.9, adult; Z20.822 Contact with and (suspected) exposure to COVID-19

== ENCOUNTER 2021-01-18 18:05 | Emergency (ER) | payer OTHER ==
[~2021-01-18] VITALS: Ht 12.7 cm; Wt 66.7 kg
== END 2021-01-18 21:49 ==
LOC: ED 18:05
DX: R07.81 Pleurodynia (principal); M79.601 Pain in right arm; Z87.891 Personal history of nicotine dependence; Z98.890 Other specified postprocedural states; Z79.899 Other long term (current) drug therapy; Z79.82 Long term (current) use of aspirin; W18.30XA Fall on same level, unspecified, initial encounter; Y93.89 Activity, other specified; Y92.128 Other place in nursing home as the place of occurrence of the external cause; Y99.9 Unspecified external cause status

== ENCOUNTER 2021-01-21 17:30 | Emergency (ER) | payer OTHER ==
[~2021-01-21] VITALS: Ht 157.4 cm; Wt 63.5 kg
[2021-01-21 18:52] LABS: BASO # 0.1 10*3/uL (0.0-0.1); BASO % 0.6 % (0.0-1.0); EOS # 0.3 10*3/uL (0.0-0.4); EOS % 1.9 % (1.0-4.0); HEMATOCRIT 30.3 % (37.0-47.0); LYMPH # 3.1 10*3/uL (1.3-4.4); LYMPH % 21.2 % (27.0-41.0); MEAN CELL VOLUME 76.5 fl (81.0-99.0); MEAN CORPUSCULAR HGB 19.9 pg (27.0-31.0); MEAN CORPUSCULAR HGB CONC 26.1 g/dl (33.0-37.0); MEAN PLATELET VOLUME 9.9 fl (9.6-12.3); MONO # 0.9 10*3/uL (0.1-1.0); MONO % 6.1 % (3.0-9.0); NEUT # 10.1 10*3/uL (2.3-7.9); NEUT % 69.7 % (47.0-73.0); PLATELET COUNT AUTOMATED 563 10*3/uL (130-400); RED BLOOD COUNT 3.96 10*6/uL (4.10-5.10); RED CELL DISTRI WIDTH 20.5 % (0-14.5); WHITE BLOOD COUNT 14.5 10*3/uL (4.8-10.8)
[2021-01-21 19:03] LABS: ACT PARTIAL THROMBO TIME 25.7 SECONDS (20.0-32.1); INTERNATIONAL NORM RATIO 1.1 (2.0-3.5)
[2021-01-21 19:09] LABS: BUN 20 mg/dl (7-24); CHLORIDE 109 mmol/L (98-107); SODIUM 141 mmol/L (136-145)
[2021-01-21 19:10] LABS: TROPONIN I < 0.015 ng/ml (<0.045)
== END 2021-01-21 21:46 ==
LOC: ED 17:30
PROVIDERS: Emergency Medicine
DX: K59.00 Constipation, unspecified (principal); D64.9 Anemia, unspecified; I25.10 Atherosclerotic heart disease of native coronary artery without angina pectoris; E78.5 Hyperlipidemia, unspecified; I10 Essential (primary) hypertension; Z98.890 Other specified postprocedural states; Z79.82 Long term (current) use of aspirin; Z79.899 Other long term (current) drug therapy; Z87.891 Personal history of nicotine dependence; W19.XXXA Unspecified fall, initial encounter; Y93.89 Activity, other specified; Y92.89 Other specified places as the place of occurrence of the external cause; Y99.8 Other external cause status

== ENCOUNTER → 2021-02-08 | Outpatient (CLI) | payer OTHER ==
[2021-02-08] VITALS (10 sets, daily range): BP systolic 109–166; BP diastolic 71–93
[~2021-02-08] MED LIST changes: +AMLODIPINE BES2.5 MG PO; +ANUSOL HC30 GM PO; +ARTIFICIALS TEA30 ML OU; +AUGMENTIN 875-875 MG PO; +CRANBERRY URIN1 EACH PO; +CYMBALTA60 MG PO; +DULCOLAX STOOL100 M1 PO; +DULCOLAX10 M1 R; +GLYCOLAX119 GM PO; +MEGACE 40400 MG/10 PO; +MOM30 M1 PO; +MUSCLE RUB CREA35 GM T; +POTASSIUM CHLO20 ME3 PO; +RIVASTIGMINE TAR6 M1 PO; +SENNOSIDES-DOC1 EACH PO; +TAB-A-VITE TA400 MCG PO; +TYLENOL EXTRA500 MG PO; +VITAMIN B150 MG PO; +VITAMIN D325 MCG PO
== END | disposition home or self-care (01) ==
LOC: TRNFUSION 11:30
PROVIDERS: ATTEND Internal Medicine
DX: D64.9 Anemia, unspecified (principal)

== ENCOUNTER → 2021-03-27 | Outpatient (CLI) | payer OTHER | END | disposition home or self-care (01) | LOC: CT 03-21 10:00 | PROVIDERS: ATTEND Urology | DX: N28.1 Cyst of kidney, acquired (principal); D25.9 Leiomyoma of uterus, unspecified; K57.30 Diverticulosis of large intestine without perforation or abscess without bleeding; R31.9 Hematuria, unspecified; I25.10 Atherosclerotic heart disease of native coronary artery without angina pectoris ==

== ENCOUNTER 2021-05-08 10:56 | Emergency (ER) | payer OTHER | END 2021-05-08 14:01 | LOC: ED 10:56 | DX: R51.9 Headache, unspecified (principal); M25.511 Pain in right shoulder; M25.512 Pain in left shoulder; Z79.899 Other long term (current) drug therapy; Z88.1 Allergy status to other antibiotic agents; W17.89XA Other fall from one level to another, initial encounter; Y93.89 Activity, other specified; Y92.89 Other specified places as the place of occurrence of the external cause; Y99.8 Other external cause status ==

== ENCOUNTER → 2021-06-28 | Outpatient (CLI) | payer OTHER | END | disposition home or self-care (01) | LOC: CT 06-27 10:00 | PROVIDERS: ATTEND Internal Medicine | DX: G91.9 Hydrocephalus, unspecified (principal); G93.89 Other specified disorders of brain ==

== ENCOUNTER 2023-12-15 10:47 | Emergency (ER) | payer OTHER ==
[~2023-12-15] VITALS: Ht 160 cm; Wt 56.4 kg
[2023-12-15 11:17] LABS: BASO # 0.1 10*3/uL (0.0-0.1); BASO % 0.6 % (0.0-1.0); EOS # 0.3 10*3/uL (0.0-0.4); EOS % 3.1 % (1.0-4.0); HEMATOCRIT 47.1 % (37.0-47.0); LYMPH # 1.7 10*3/uL (1.3-4.4); LYMPH % 17.2 % (27.0-41.0); MEAN CORPUSCULAR HGB 28.1 pg (27.0-31.0); MEAN CORPUSCULAR HGB CONC 29.9 g/dl (33.0-37.0); MEAN PLATELET VOLUME 9.9 fl (9.6-12.3); MONO % 9.6 % (3.0-9.0); NEUT % 69.3 % (47.0-73.0); PLATELET COUNT AUTOMATED 263 10*3/uL (130-400); RED BLOOD COUNT 5.01 10*6/uL (4.10-5.10); RED CELL DISTRI WIDTH 15.1 % (0-14.5); WHITE BLOOD COUNT 10.1 10*3/uL (4.8-10.8)
[2023-12-15 11:27] LABS: ACT PARTIAL THROMBO TIME 36.5 SECONDS (20.0-32.1)
[2023-12-15 11:38] LABS: ALKALINE PHOSPHATASE 131 U/L (46-116); BUN 11 mg/dl (9-23); CHLORIDE 104 mmol/L (98-107); LIPASE 44 U/L (12-53); POTASSIUM 4.4 mmol/L (3.4-5.1); SGPT/ALT 11 U/L (5-49); TOTAL PROTEIN 7.6 gm/dL (6.0-8.0)
[2023-12-15 11:57] LABS: BILIRUBIN Negative (Negative); BLOOD Negative (Negative); CLARITY Cloudy (Clear); COLOR Yellow (Yellow); GLUCOSE Negative (Negative); KETONE Negative (Negative); LEUKO ESTERASE 3+ (Negative); NITRITE Positive (Negative); UROBILINOGEN 0.2 E.U./dl (0.0-1.0)
[2023-12-15 12:09] LABS: BACTERIA 4+; WBC TNTC wbc/hpf (0-5)
[2023-12-15] MEDS ORDERED: CIPRO500 MG PO (12:13)
[2023-12-15] MEDS ORDERED: FLUONAZOLE150 M1 PO (12:13)
== END 2023-12-15 12:21 ==
LOC: ED 10:47
PROVIDERS: Internal Medicine
DX: N39.0 Urinary tract infection, site not specified (principal); B37.9 Candidiasis, unspecified; M79.7 Fibromyalgia; I10 Essential (primary) hypertension; Z87.891 Personal history of nicotine dependence; Z98.890 Other specified postprocedural states